=== PATIENT | male | born 1985 | race African-American/Black ===

== ENCOUNTER 2018-12-08 00:48 | Emergency (ER) | payer OTHER, MEDICAID ==
[~2018-12-08] VITALS: Ht 180.3 cm; Wt 78.0 kg
[~2018-12-08 00:48] MED LIST: IBUPROFEN600 MG ORAL; NORCO 5-325 TA1 EACH ORAL
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
[2018-12-08] MEDS ORDERED: NKM (00:52)
[2018-12-08 01:00] VITALS: BP 155/91
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
[2018-12-08 01:16] VITALS: BP 150/84
[2018-12-08 01:17] VITALS: BP 150/84
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
== END 2018-12-08 01:21 ==
LOC: EDBD 00:48 → EMR 01:02
DX: F10.920 Alcohol use, unspecified with intoxication, uncomplicated (principal)
CPT/HCPCS: 99283

== ENCOUNTER 2019-03-14 21:15 | Emergency (ER) | payer BC, OTHER ==
[~2019-03-14] VITALS: Ht 180.3 cm; Wt 81.6 kg
[~2019-03-14 21:15] MED LIST changes: +NKM
[2019-03-14 21:27] VITALS: BP 108/72
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
--- NOTE | 2019-03-14 22:09 | NUR ---
ED Nurse Note: ANTHONY arrived and got the report.
[2019-03-14] MEDS ORDERED: Bacitracin Oint UD TOPIC ONE (22:15)
[2019-03-14] MEDS ORDERED: BACITRACIN15 GM TOPIC (22:21)
[2019-03-14] MEDS ORDERED: IBUPROFEN600 MG ORAL (22:21)
[2019-03-14] MEDS ORDERED: CEPHALEXIN500 MG ORAL (22:21)
[2019-03-14 22:28] VITALS: BP 108/72
--- NOTE | 2019-03-14 22:28 | NUR ---
ER DISCHARGE NOTE: Patient is cleared to be discharged per Dr. Wilson. Suture done by , dressing applied. Pt states that pt had Tatanus up dated. Pt is aox4 on room air with stable vital signs. Pt was given dc and prescription instructions and was able to verbalize understanding. Pt's ID band removed. Pt is able to ambulate with steady gait and took all belongings.
== END 2019-03-14 22:28 | disposition home or self-care (01) ==
LOC: EMR 21:25
DX: S41.111A Laceration without foreign body of right upper arm, initial encounter (principal); X99.0XXA Assault by sharp glass, initial encounter; Y92.9 Unspecified place or not applicable
CPT/HCPCS: 99282